=== PATIENT | male | born 1945 | race Caucasian/White ===

== ENCOUNTER 2022-09-03 09:45 | Outpatient (CLI) | payer MEDICARE ==
[~2022-09-03 09:45] MED LIST: Iopamidol 300 61% 100 ML VIAL FS ONE
== END 2022-09-03 09:46 | disposition home or self-care (01) ==
LOC: CSHCT 09:45
PROVIDERS: ATTEND Internal Medicine Gastroenterology
DX: R10.13 Epigastric pain (principal); K21.9 Gastro-esophageal reflux disease without esophagitis; K44.9 Diaphragmatic hernia without obstruction or gangrene; K76.89 Other specified diseases of liver; N20.0 Calculus of kidney; K57.30 Diverticulosis of large intestine without perforation or abscess without bleeding
CPT/HCPCS: 74177; 82565; Q9967